=== PATIENT | male | born 1955 | race Caucasian/White ===

== ENCOUNTER 2016-12-05 06:55 | Day surgery (SDC) | payer OTHER ==
--- NOTE | ~2016-12-05 | EGD ---
EGD REPORT [facility] [address] [place] [id number] NAME: BASSAM HAYES : [birth year] STATUS : [place] [facility] [place] PAT#: [id number] AGE: 61 ADM/REG DATE : 12/05/16 MR#: [id number] REPORT SERV DATE: 12/05/16 DICTATED BY: PAWAN STEELE DATE: 12/05/16 REPORT STATUS : Draft TRANSCRIBED BY: [employer] DATE: 12/05/16 [facility] Patient Name: Bassam Hayes Date of : 1955 Attending MD: PAWAN STEELE MD Procedure Date No Time: 12/05/2016 Procedure: Colonoscopy Indications: Rectal bleeding Referring MD: BASSAM EDGE MD Medicines: as per anesthesia Complications: No immediate complications. Procedure: Pre-Anesthesia Assessment: - ASA Grade Assessment: I - A normal, healthy patient. After I obtained informed consent, the scope was passed under direct vision. Throughout the procedure, the patient's blood pressure, pulse, and oxygen saturations were monitored continuously. The PCF [id number] was introduced through the anus and advanced to the cecum, identified by appendiceal orifice and ileocecal valve. The colonoscopy was performed without difficulty. The patient tolerated the procedure. The quality of the bowel preparation was adequate to identify polyps. Findings: The perianal and digital rectal examinations were normal. A few medium-mouthed diverticula were found in the sigmoid colon. Internal hemorrhoids were found during endoscopy and were mild. Impression: - Diverticulosis in the sigmoid colon. - Internal hemorrhoids. Recommendation: - Repeat colonoscopy in 10 years for surveillance. Procedure Code(s): --- Professional --- 55328, Colonoscopy, flexible, proximal to splenic flexure; diagnostic, with or without collection of specimen(s) by brushing or washing, with or without colon decompression (separate procedure) Diagnosis Code(s): --- Professional --- K64.8, Other hemorrhoids K57.30, Diverticulosis of large intestine without perforation or abscess without bleeding K62.5, Hemorrhage of anus and rectum EGD REPORT [place] [address] [address] [id number] NAME: BASSAM HAYES : [birth year] STATUS : [place] [facility] [place] PAT#: [id number] AGE: 61 ADM/REG DATE : 12/05/16 MR#: [id number] REPORT SERV DATE: 12/05/16 DICTATED BY: PAWAN STEELE. DATE: 12/05/16 REPORT STATUS : Draft TRANSCRIBED BY: [email or web address] DATE: 12/05/16 CPT copyright 2013 [employer]. All rights reserved. The codes documented in this report are preliminary and upon bolt threader review may be revised to meet current compliance requirements. PAWAN STEELE MD 12/05/2016 9:35 AM This report has been signed electronically. Number of Addenda: 0 Note Initiated On: 12/05/2016 8:54 AM Scope Withdrawal Time 0 hours 6 minutes 30 seconds [address] [id number]
--- NOTE | ~2016-12-05 | EGD ---
EGD REPORT [facility] [address] [address] NAME: BACILIO WEBER : [birth year] [place]US [place] [facility] [place] PAT#: [id number] AGE: 61 ADM/REG DATE : 12/05/16 MR#: [id number] REPORT SERV DATE: 12/05/16 DICTATED BY: PAWAN STEELE DATE: 12/05/16 REPORT STATUS : Draft TRANSCRIBED BY: [facility] DATE: 12/05/16 [facility] Patient Name: Bacilio Weber Date of : 1955 Attending MD: PAWAN STEELE MD Procedure Date No Time: 12/05/2016 Procedure: Upper GI endoscopy Indications: Heartburn, Suspected esophageal reflux, Chronic cough Referring MD: BACILIO EDGE MD Medicines: as per anesthesia Complications: No immediate complications. Procedure: Pre-Anesthesia Assessment: - ASA Grade Assessment: I - A normal, healthy patient. After obtaining informed consent, the endoscope was passed under direct vision. Throughout the procedure, the patient's blood pressure, pulse, and oxygen saturations were monitored continuously. The GIF H190 [id number] was introduced through the mouth, and advanced to the third part of duodenum. The upper GI endoscopy was accomplished without difficulty. The patient tolerated the procedure. Findings: The examined esophagus was normal. The entire examined stomach was normal. The cardia and gastric fundus were normal on retroflexion. The examined duodenum was normal. Impression: - Normal esophagus. - Normal stomach. - Normal examined duodenum. Recommendation: - Follow an antireflux regimen. - Continue present medications. Procedure Code(s): --- Professional --- 52747, Esophagogastroduodenoscopy, flexible, transoral; diagnostic, including collection of specimen(s) by brushing or washing, when performed (separate procedure) Diagnosis Code(s): --- Professional --- R12, Heartburn R05, Cough EGD REPORT [facility] [address] [place]. [address] NAME: BACILIO WEBER : [birth year] STATUS : [place] [facility] [place] PAT#: [id number] AGE: 61 ADM/REG DATE : 12/05/16 MR#: [id number] REPORT SERV DATE: 12/05/16 DICTATED BY: PAWAN STEELE. DATE: 12/05/16 REPORT STATUS : Draft TRANSCRIBED BY: [employer] DATE: 12/05/16 CPT copyright 2013 [employer]. All rights reserved. The codes documented in this report are preliminary and upon slip feeder review may be revised to meet current compliance requirements. PAWAN STEELE MD 12/05/2016 9:15 AM This report has been signed electronically. Number of Addenda: 0 Note Initiated On: 12/05/2016 9:00 AM Scope Withdrawal Time 0 hours 0 minutes 0 seconds [address] [facility] [place] [address]
[~2016-12-05 06:55] MED LIST: ADVIL PO; CENTRUM TAB1 TAB PO; FISH-EPA1000 MG PO; MOBIC7.5 PO; PRILO PO; ULTRAM50 PO; VICODIN ES1 TAB PO; WELLXL150 PO
== END 2016-12-05 23:59 | disposition home or self-care (01) ==
LOC: DMU 06:55
PROVIDERS: Internal Medicine Gastroenterology
PROC: 0DJD8ZZ Inspection of Lower Intestinal Tract, Via Natural or Artificial Opening Endoscopic (ICD-10-PCS; principal; 2016-12-05 08:30)
PROC: 0DJ08ZZ Inspection of Upper Intestinal Tract, Via Natural or Artificial Opening Endoscopic (ICD-10-PCS; 2016-12-05 08:30)
DX: K57.30 Diverticulosis of large intestine without perforation or abscess without bleeding (principal); K64.8 Other hemorrhoids; F41.9 Anxiety disorder, unspecified; Z79.899 Other long term (current) drug therapy; Z87.891 Personal history of nicotine dependence; Z90.89 Acquired absence of other organs; Z90.49 Acquired absence of other specified parts of digestive tract; Z98.890 Other specified postprocedural states